=== PATIENT | female | born 1950 | race Two or more races ===

== ENCOUNTER 2025-04-01 22:00 | Inpatient (IN) | payer OTHER, MEDICAID ==
[~2025-04-01] VITALS: Ht 165.1 cm; Wt 61.2 kg
[2025-04-01] MEDS ORDERED: ONDANSETRON HCL/PF 4 MG/2 ML VIAL ONE (22:56)
[2025-04-01] MEDS ORDERED: MORPHINE SULFATE INJ 4 MG/ML DISP.SYRIN ONE ×2 (22:56→23:22)
[2025-04-01 23:11] LABS: PLATELET COUNT (AUTO) 314 K/uL (150-450); RED BLOOD CELL COUNT(AUTO) 4.58 MIL/uL (4.0-5.2); RED CELL DISTRIBUTION WIDTH 14.2 % (11.5-15.0); WHITE BLOOD COUNT (AUTO) 8.7 K/uL (4.3-11.0)
[2025-04-01] MEDS: IV NS 0.9% 1,000 ML BAG IV ONE (23:17)
[2025-04-01] MEDS: ONDANSETRON HCL/PF 4 MG/2 ML VIAL IVP ONE (23:19)
[2025-04-01 23:22] LABS: APPEARANCE,URINE CLEAR (CLEAR); BLOOD, URINE 1+ Ery/uL (NEGATIVE); LEUKOCYTE ESTERASE ,URINE 2+ (NEGATIVE); NITRITE, URINE NEGATIVE (NEGATIVE); UGLUCOSE NEGATIVE (NEGATIVE)
[2025-04-01 23:23] LABS: ASPARTATE AMINOTRANSFERASE 36 U/L (15-37); CALCIUM, SERUM 10.5 mg/dL (8.5-10.1); CREATININE 0.9 mg/dL (0.6-1.3); SODIUM SERUM 140 mmol/L (136-145); TOTAL PROTEIN, SERUM 8.8 g/dL (6.4-8.2); UREA NITROGEN, BLOOD 19 mg/dL (7-18)
[2025-04-01] MEDS: MORPHINE SULFATE INJ 2 MG/ML DISP.SYRIN IV ONE (23:24)
[2025-04-01 23:27] LABS: INR 0.96 (0.91-1.10)
[2025-04-02 00:12] LABS: ADD URINE CULTURE YES; SQUAMOUS EPITHELIAL CELL,UR Few /HPF (None Seen); URINE AMORPHOUS PHOSPHATES Many /HPF (None Seen)
[2025-04-02] MEDS ORDERED: CEFTRIAXONE 1GM BAG (ER ONLY) 50 ML IV ONE (00:29)
[2025-04-02] MEDS: CEFTRIAXONE 1GM BAG (ER ONLY) 1 GM/50 ML PIGGYBACK IV ONE (00:34)
[2025-04-02] MEDS ORDERED: PANTOPRAZOLE 40 MG VIAL ONE (02:16)
[2025-04-02] MEDS ORDERED: ZOLPIDEM TARTRATE 5 MG TABLET PO PRN (03:00)
[2025-04-02] MEDS ORDERED: ACETAMINOPHEN 325 MG TABLET PO PRN (03:00)
[2025-04-02] MEDS ORDERED: Z GUARD REMEDY 4 OZ OINT TP PRN (03:00)
[2025-04-02] MEDS ORDERED: MAGNESIUM HYDROXIDE 30 ML UDC PO PRN (03:00)
[2025-04-02] MEDS ORDERED: MAG HYDROX/AL HYDROX/SIMETH 30 ML UDC PO PRN (03:00)
[2025-04-02] MEDS: PANTOPRAZOLE 40 MG VIAL IV SCH ×2 (03:23→09:04)
[2025-04-02 03:30] VITALS: BP 128/55; TEMP 97.9; O2SAT 100
[2025-04-02] MEDS: IV D5/0.45 NACL 1,000 ML IV PRN (03:46)
[2025-04-02] MEDS: MORPHINE SULFATE INJ 2 MG/ML DISP.SYRIN IV PRN (04:23)
[2025-04-02] MEDS: ENOXAPARIN SODIUM 40 MG/0.4 ML DISP.SYRIN SQ SCH (04:25)
[2025-04-02 08:00] VITALS: BP 133/53; TEMP 98.2; O2SAT 98
[2025-04-02] MEDS ORDERED: CARV6.252 PO (08:45)
[2025-04-02] MEDS ORDERED: CILO100T PO (08:45)
[2025-04-02] MEDS ORDERED: ALEN70TA80 PO (08:45)
[2025-04-02] MEDS ORDERED: LOSA50TA39 PO (08:45)
[2025-04-02] MEDS ORDERED: ERGO500093 PO (08:45)
[2025-04-02] MEDS ORDERED: GABA300C PO (08:45)
[2025-04-02] MEDS ORDERED: ATOR40TA PO (08:45)
[2025-04-02] MEDS ORDERED: DOSING PER PHARMACY-CEFEPIME IVPB XX PRN (10:00)
[2025-04-02] MEDS ORDERED: DOSING PER PHARMACY-VANCOMYCIN IV XX PRN (10:00)
[2025-04-02 10:04] LABS: CALCIUM, SERUM 8.2 mg/dL (8.5-10.1); CREATININE 0.8 mg/dL (0.6-1.3); SODIUM SERUM 139.0 mmol/L (136-145); UREA NITROGEN, BLOOD 16.0 mg/dL (7-18)
[2025-04-02 10:20] LABS: LDL 58 mg/dL (0-99)
[2025-04-02] MEDS: VANCOMYCIN HCL 1.25 GM in IV D5W 250 ML IV ONE (11:39)
[2025-04-02] MEDS: CEFEPIME 2 GM in IV D5W 100 ML IV SCH (14:14)
[2025-04-02 16:00] VITALS: BP 145/49; TEMP 98.1; O2SAT 98
[2025-04-02] MEDS: CARVEDILOL 6.25 MG TABLET PO SCH (17:00)
[2025-04-02] MEDS: POTASSIUM CL. PREMIX PERIPHER. 50 ML IV SCH (19:17)
[2025-04-02 20:00] VITALS: BP 165/42; TEMP 98.1; O2SAT 100
[2025-04-02] MEDS: GABAPENTIN 300 MG CAPSULE PO SCH (21:24)
[2025-04-03] VITALS (7 sets, daily range): BP systolic 131–170; BP diastolic 44–63; TEMP 97.7–98.8; O2SAT 97–100
[2025-04-03] MEDS ORDERED: CEFTRIAXONE 1 G in IV D5W 50 ML IV SCH (01:00)
[2025-04-03 07:18] LABS: PLATELET COUNT (AUTO) 263 K/uL (150-450); RED BLOOD CELL COUNT(AUTO) 3.80 MIL/uL (4.0-5.2); RED CELL DISTRIBUTION WIDTH 14.0 % (11.5-15.0); WHITE BLOOD COUNT (AUTO) 5.5 K/uL (4.3-11.0)
[2025-04-03 07:42] LABS: ASPARTATE AMINOTRANSFERASE 23.0 U/L (15-37); CALCIUM, SERUM 8.1 mg/dL (8.5-10.1); CREATININE 0.6 mg/dL (0.6-1.3); PHOSPHORUS 2.9 mg/dL (2.5-4.9); SODIUM SERUM 140.0 mmol/L (136-145); TOTAL PROTEIN, SERUM 6.8 g/dL (6.4-8.2); UREA NITROGEN, BLOOD 9.0 mg/dL (7-18)
[2025-04-03] MEDS: ONDANSETRON HCL/PF 4 MG/2 ML VIAL IVP PRN (08:42)
[2025-04-03] MEDS: LOSARTAN POTASSIUM 50 MG TABLET PO SCH (08:43)
[2025-04-03] MEDS: ATORVASTATIN 40 MG TABLET PO SCH (08:44)
[2025-04-03] MEDS: CILOSTAZOL 100 MG TABLET PO SCH (08:44)
[2025-04-03] MEDS: POTASSIUM CL. PREMIX PERIPHER. 50 ML IV SCH (09:38)
[2025-04-03] MEDS ORDERED: ANESTHESIA TRAY IN PYXIS 1 EA TRAY MC ONE (11:29)
[2025-04-03] MEDS: VANCOMYCIN HCL 1.25 GM in IV D5W 250 ML IV SCH (13:15)
[2025-04-04] VITALS: BP 142/42; TEMP 97.9; O2SAT 98
[2025-04-04 04:00] VITALS: BP 146/52; TEMP 98.1; O2SAT 100
[2025-04-04 07:56] LABS: PLATELET COUNT (AUTO) 253 K/uL (150-450); RED BLOOD CELL COUNT(AUTO) 3.78 MIL/uL (4.0-5.2); RED CELL DISTRIBUTION WIDTH 14.1 % (11.5-15.0); WHITE BLOOD COUNT (AUTO) 5.9 K/uL (4.3-11.0)
[2025-04-04 08:00] VITALS: BP 150/40; TEMP 98.2; O2SAT 98
[2025-04-04 08:25] LABS: CALCIUM, SERUM 8.3 mg/dL (8.5-10.1); CREATININE 0.6 mg/dL (0.6-1.3); PHOSPHORUS 2.5 mg/dL (2.5-4.9); SODIUM SERUM 139.0 mmol/L (136-145); UREA NITROGEN, BLOOD 7.0 mg/dL (7-18)
[2025-04-04 12:00] VITALS: BP 153/56; TEMP 98.2; O2SAT 99
[2025-04-04 16:00] VITALS: BP 148/45; TEMP 98.4; O2SAT 98
[2025-04-04] MEDS: POTASSIUM CL. PREMIX PERIPHER. 50 ML IV SCH (17:56)
[2025-04-04 20:00] VITALS: BP 155/42; TEMP 98.6; O2SAT 100
[2025-04-05] VITALS (7 sets, daily range): BP systolic 125–161; BP diastolic 36–60; TEMP 97.1–99.1; O2SAT 97–100
[2025-04-05 07:39] LABS: PLATELET COUNT (AUTO) 255 K/uL (150-450); RED BLOOD CELL COUNT(AUTO) 3.83 MIL/uL (4.0-5.2); RED CELL DISTRIBUTION WIDTH 14.2 % (11.5-15.0); WHITE BLOOD COUNT (AUTO) 5.7 K/uL (4.3-11.0)
[2025-04-05 08:02] LABS: CALCIUM, SERUM 8.4 mg/dL (8.5-10.1); CREATININE 0.5 mg/dL (0.6-1.3); SODIUM SERUM 142.0 mmol/L (136-145); UREA NITROGEN, BLOOD 5.0 mg/dL (7-18)
[2025-04-05 08:06] LABS: PHOSPHORUS 2.3 mg/dL (2.5-4.9)
[2025-04-05] MEDS: POTASSIUM CL. PREMIX PERIPHER. 50 ML IV SCH (09:13)
[2025-04-05] MEDS: MORPHINE SULFATE INJ 4 MG/ML DISP.SYRIN IV ONE (12:36)
[2025-04-05] MEDS: hydrALAZINE HCL IV 20 MG VIAL IV PRN (17:19)
[2025-04-05] MEDS: Sodium Phosphate 15 MMOL in IV NS 0.9% 245 ML IV SCH (17:27)
[2025-04-06] VITALS (8 sets, daily range): BP systolic 123–157; BP diastolic 40–66; TEMP 97.5–98.8; O2SAT 96–99
[2025-04-06 06:57] LABS: CALCIUM, SERUM 8.4 mg/dL (8.5-10.1); CREATININE 0.5 mg/dL (0.6-1.3); SODIUM SERUM 140.0 mmol/L (136-145); UREA NITROGEN, BLOOD 4.0 mg/dL (7-18)
[2025-04-06 07:05] LABS: PLATELET COUNT (AUTO) 255 K/uL (150-450); RED BLOOD CELL COUNT(AUTO) 3.98 MIL/uL (4.0-5.2); RED CELL DISTRIBUTION WIDTH 14.1 % (11.5-15.0); WHITE BLOOD COUNT (AUTO) 5.0 K/uL (4.3-11.0)
[2025-04-06] MEDS ORDERED: POTASSIUM CHLORIDE 20 MEQ TAB.PRT.SR PO SCH (09:00)
[2025-04-06] MEDS: POTASSIUM CL. PREMIX PERIPHER. 50 ML IV SCH (09:36)
[2025-04-06] MEDS: VANCOMYCIN 1 GM in IV D5W 250ml IV SCH (21:53)
[2025-04-07] VITALS: BP 145/61; TEMP 98.1; O2SAT 100
[2025-04-07 04:00] VITALS: BP 140/45; TEMP 97.9; O2SAT 100
[2025-04-07 07:30] VITALS: BP 144/31; TEMP 97.7; O2SAT 98
[2025-04-07 07:52] LABS: PLATELET COUNT (AUTO) 200 K/uL (150-450); RED BLOOD CELL COUNT(AUTO) 3.14 MIL/uL (4.0-5.2); RED CELL DISTRIBUTION WIDTH 14.7 % (11.5-15.0); WHITE BLOOD COUNT (AUTO) 4.7 K/uL (4.3-11.0)
[2025-04-07 09:48] LABS: CALCIUM, SERUM 8.6 mg/dL (8.5-10.1); CREATININE 0.5 mg/dL (0.6-1.3); SODIUM SERUM 140.0 mmol/L (136-145); UREA NITROGEN, BLOOD 2.0 mg/dL (7-18)
[2025-04-07 20:00] VITALS: BP 151/51; TEMP 98.1; O2SAT 96
[2025-04-08] VITALS: BP 143/38; TEMP 97.9; O2SAT 99
[2025-04-08 04:00] VITALS: BP 139/40; TEMP 98.1; O2SAT 100
[2025-04-08 07:21] LABS: RED BLOOD CELL COUNT(AUTO) 4.06 MIL/uL (4.0-5.2); WHITE BLOOD COUNT (AUTO) 5.3 K/uL (4.3-11.0)
[2025-04-08 07:22] LABS: PLATELET COUNT (AUTO) 265 K/uL (150-450); RED CELL DISTRIBUTION WIDTH 14.2 % (11.5-15.0)
[2025-04-08 07:36] LABS: CALCIUM, SERUM 8.7 mg/dL (8.5-10.1); CREATININE 0.5 mg/dL (0.6-1.3); SODIUM SERUM 142.0 mmol/L (136-145); UREA NITROGEN, BLOOD 3.0 mg/dL (7-18)
[2025-04-08 08:00] VITALS: BP 151/49; TEMP 97.9; O2SAT 100
[2025-04-08] MEDS: POTASSIUM CL. PREMIX PERIPHER. 50 ML IV SCH (13:10)
[2025-04-08 16:00] VITALS: BP 149/39; TEMP 97.9; O2SAT 97
[2025-04-08 20:00] VITALS: BP 150/40; TEMP 97.9; O2SAT 100
[2025-04-08] MEDS: VANCOMYCIN 750 MG in IV D5W 250 ML IV SCH (22:41)
[2025-04-09 08:00] VITALS: BP 142/52; TEMP 98.1; O2SAT 98
[2025-04-09 08:06] VITALS: BP 142/52; TEMP 98.1; O2SAT 98
[2025-04-09 11:20] LABS: PLATELET COUNT (AUTO) 259 K/uL (150-450); RED BLOOD CELL COUNT(AUTO) 4.07 MIL/uL (4.0-5.2); RED CELL DISTRIBUTION WIDTH 14.0 % (11.5-15.0); WHITE BLOOD COUNT (AUTO) 5.7 K/uL (4.3-11.0)
[2025-04-09 11:38] LABS: CALCIUM, SERUM 9.2 mg/dL (8.5-10.1); CREATININE 0.4 mg/dL (0.6-1.3); SODIUM SERUM 141.0 mmol/L (136-145); UREA NITROGEN, BLOOD 3.0 mg/dL (7-18)
[2025-04-09] MEDS: POTASSIUM CL. PREMIX PERIPHER. 50 ML IV SCH (13:36)
[2025-04-09 16:00] VITALS: BP 155/54; TEMP 98.2; O2SAT 99
[2025-04-09 17:13] VITALS: BP 155/54
== END 2025-04-09 20:00 | disposition short-term general hospital (02) | DRG 380 ==
LOC: ER 22:10 → TELE 04-02 01:13 → MED 04-03 17:57 → TELE 04-03 18:08 → MED 04-07 12:34
PROVIDERS: ADMIT Internal Medicine; ATTEND Internal Medicine
PROC: 0DJ08ZZ Inspection of Upper Intestinal Tract, Via Natural or Artificial Opening Endoscopic (ICD-10-PCS; principal; 2025-04-03 10:00)
DX: K31.1 Adult hypertrophic pyloric stenosis (principal); I21.A1 Myocardial infarction type 2; K80.01 Calculus of gallbladder with acute cholecystitis with obstruction; N39.0 Urinary tract infection, site not specified; E83.51 Hypocalcemia; I10 Essential (primary) hypertension; K21.9 Gastro-esophageal reflux disease without esophagitis; B96.89 Other specified bacterial agents as the cause of diseases classified elsewhere; K31.9 Disease of stomach and duodenum, unspecified; E87.6 Hypokalemia
CPT/HCPCS: 36415; 71045-TC; 74181-TC; 76705-TC; 78226; 80048-TC; 80061-TC; 80076-TC; 80202-TC; 81001; 83690-TC; 83735-TC; 84100-TC; 84443-TC; 84484-TC; 85025-TC; 85730-TC; 86850-TC; 87081-TC; 87086-TC; 93307-TC; A4223; A9537; A9563; G0378; J0360; J0692; J0696; J1650; J2270; J2405; J2470; J2704; J3370; J3371; J3480; J3490; J7030; J7040; J7050; J7060